=== PATIENT | male | born 1950 | race Caucasian/White ===

== ENCOUNTER 2019-01-03 18:24 | Emergency (ER) | payer MEDICARE ==
[~2019-01-03] VITALS: Ht 177.8 cm; Wt 73.6 kg
[2019-01-03] MEDS ORDERED: ATENOLOL25 MG PO (18:50)
[2019-01-03] MEDS ORDERED: INVOKANA300 MG PO (18:51)
[2019-01-03] MEDS ORDERED: DIGOXIN0.125 MG PO (18:51)
[2019-01-03] MEDS ORDERED: JANUVIA100 MG PO (18:52)
[2019-01-03] MEDS ORDERED: MOEXIPRIL HCL15 MG PO (18:53)
[2019-01-03 19:14] LABS: HEMATOCRIT 43.8 % (39.0-50.0); IMMATURE GRANULOCYTES 0.4 % (0.0-5.0); MEAN CELL VOLUME 86.9 fL CALC (80.0-100.0); MEAN CORPUSCULAR HGB 29.8 pG CALC (26.0-32.0); MEAN CORPUSCULAR HGB CONC 34.2 g/L CALC (32.0-36.0); NEUT# 4.09 thou/uL (1.82-7.42); RED BLOOD COUNT 5.04 mill/uL (4.70-6.10); RED CELL DISTRI WIDTH 12.4 % (11.5-15.5)
[2019-01-03 19:17] LABS: URINE BILIRUBIN - DIPSTICK NEGATIVE (NEGATIVE); URINE BLOOD DIPSTICK NEGATIVE (NEGATIVE); URINE COLOR YELLOW; URINE GLUCOSE - DIPSTICK >=1000 mg/dL (NEGATIVE); URINE KETONE NEGATIVE (NEGATIVE); URINE LEUK ESTERASE NEGATIVE (NEGATIVE); URINE NITRITE - DIPSTICK NEGATIVE (Negative); URINE PH 5.5 (4.5-8.0); URINE PROTEIN - DIPSTICK NEGATIVE (NEG-TRACE); URINE UROBILINOGEN - DIPSTICK 0.2 E.U./dL (0.2)
[2019-01-03 19:39] LABS: ALBUMIN 4.6 g/dL (3.2-5.0); ANION GAP 16 (6-22 (CALC)); BILIRUBIN, TOTAL 0.4 mg/dL (0.0-1.4); BUN 21 mg/dL (8-23); BUN/CREATININE RATIO 26 (12-20 (CALC)); CARBON DIOXIDE 25 mmol/l (22-30); CHLORIDE 99 mmol/l (95-108); CREATININE 0.8 mg/dL (0.7-1.3); GFR > 60 ML/MIN (>=60 (CALC)); GFR FOR AFR.AMER. > 60 ML/MIN (>=60 (CALC)); POTASSIUM 4.2 mmol/l (3.5-5.1); SGOT/AST 20 u/l (19-48); SODIUM 136 mmol/l (137-146); TOTAL PROTEIN 7.1 g/dL (6.3-8.2)
[2019-01-03 20:01] LABS: ALKALINE PHOSPHATASE 106 u/l (38-126)
[2019-01-03 21:47] VITALS: BP 159/73
== END 2019-01-03 21:57 | disposition home or self-care (01) ==
LOC: ED 18:24
PROVIDERS: Emergency Medicine
DX: Z03.89 Encounter for observation for other suspected diseases and conditions ruled out (principal); E11.65 Type 2 diabetes mellitus with hyperglycemia; I10 Essential (primary) hypertension; Z79.4 Long term (current) use of insulin

== ENCOUNTER 2020-06-20 10:47 | Emergency (ER) | payer MEDICARE ==
[~2020-06-20] VITALS: Ht 177.8 cm; Wt 70.0 kg
[~2020-06-20 10:47] MED LIST: ATENOLOL25 MG PO; DIGOXIN0.125 MG PO; INVOKANA300 MG PO; JANUVIA100 MG PO; MOEXIPRIL HCL15 MG PO
[2020-06-20] MEDS ORDERED: QUININE SULFAT324 MG PO (12:18)
[2020-06-20] MEDS ORDERED: TRULICITY0.75 MG/0. IM (12:18)
[2020-06-20] MEDS ORDERED: MUPIROCIN21 TOP (13:01)
[2020-06-20 13:05] VITALS: BP 129/75
== END 2020-06-20 13:12 | disposition home or self-care (01) ==
LOC: ED 10:47
DX: S00.83XA Contusion of other part of head, initial encounter (principal); M25.512 Pain in left shoulder; S81.812A Laceration without foreign body, left lower leg, initial encounter; S81.811A Laceration without foreign body, right lower leg, initial encounter; I10 Essential (primary) hypertension; E11.9 Type 2 diabetes mellitus without complications; W01.0XXA Fall on same level from slipping, tripping and stumbling without subsequent striking against object, initial encounter